=== PATIENT | female | born 1995 | race Caucasian/White ===

== ENCOUNTER → 2020-04-24 | Outpatient (CLI) | payer OTHER ==
--- NOTE | 2020-04-24 16:59 | REP ---
INDICATION: N64.4/N60.09 ANURADHA MASTODYNIA/CYST OF BREAST; N64.4 ANURADHA MASTODYNIA/N60.09 CYST OF BREAST. COMPARISON: Ultrasound 01/17/2020 from an outside institution. TECHNIQUE: MLO and CC views bilateral breasts performed with tomosynthesis. Palpable lump in the outer aspect of each breast is marked on the skin. Focused bilateral breast ultrasound performed. FINDINGS: The breast parenchyma is extremely dense limiting the sensitivity of the mammogram. No mass is seen mammographically. There is no evidence of architectural distortion. There are no clustered microcalcifications. Ultrasound evaluation of the palpable abnormality in each breast is performed. In the right breast at 10 o'clock there is a 5 mm cyst corresponding to the palpable lump. In the left breast at 4-5 o'clock no cystic or solid nodule is seen at the site of the palpable lump. The Volpara volumetric breast density pattern is C. IMPRESSION: BIRADS/ACR category 2, benign. Dense breast parenchyma limits the sensitivity of the mammogram. There is no mammographic evidence of mass or clustered microcalcifications. By ultrasound, at the site of the palpable lump in the right breast at the 10 o'clock position there is a 5 mm cyst. In the left breast that 4-5 o'clock there is no sonographic evidence of cystic or solid nodule. Clinical correlation and follow-up recommended. This patient's Tyrer-Cuzick lifetime breast cancer risk assessment score is 14.6%. This mammogram was interpreted with the aid of an FDA-approved computer-aided detection system. The patient states she had a clinical breast exam in November 2019. The patient letter being requested is M2. RECOMMENDATION: Recommend clinical correlation and follow-up. <Electronically signed by Sandro Kenney > 04/24/20 [id number]
== END ==
LOC: M WHC 14:09
PROVIDERS: ATTEND Physician Assistant
DX: N63.11 Unspecified lump in the right breast, upper outer quadrant (principal); N64.4 Mastodynia; N60.09 Solitary cyst of unspecified breast
CPT/HCPCS: 76642; 77066; G0279